=== PATIENT | male | born 1940 | race Caucasian/White ===

== ENCOUNTER 2017-01-29 11:38 | Emergency (ER) | payer MEDICARE, OTHER ==
[~2017-01-29] VITALS: Ht 172.7 cm; Wt 92.3 kg
[2017-01-29 11:39] VITALS: BP 137/82; TEMP 98.3
[2017-01-29] MEDS ORDERED: PLAVIX 75MG TAB75 MG PO (12:14)
[2017-01-29] MEDS ORDERED: ASPIRIN 81M81 MG/TA2 PO (12:14)
[2017-01-29] MEDS ORDERED: TOPROL XL 25MG25 MG PO (12:14)
[2017-01-29] MEDS ORDERED: NORVASC 10MG10 MG PO (12:15)
[2017-01-29] MEDS ORDERED: CRESTOR 10MG10 MG PO (12:15)
[2017-01-29] MEDS ORDERED: NITROSTAT0.4 MG/TAB SL (12:16)
[2017-01-29] MEDS ORDERED: VITAMIN A10k (12:17)
[2017-01-29] MEDS ORDERED: NATURE'S BLEND100 M2 PO (12:17)
[2017-01-29] MEDS ORDERED: VITAMIN B122500 MCG SL (12:18)
[2017-01-29] MEDS ORDERED: VITAMINC1000TA (12:18)
[2017-01-29] MEDS ORDERED: VITAMIN D3400 I1 PO (12:19)
[2017-01-29] MEDS ORDERED: CHROMIUM PICOLI1 TA8 (12:19)
[2017-01-29] MEDS ORDERED: VITAMIN E1000 U/CAP PO (12:19)
[2017-01-29] MEDS ORDERED: MAGNESIUM250 M1 PO (12:20)
[2017-01-29] MEDS ORDERED: CEPHALEXIN500 M1 PO (14:03)
[2017-01-29 14:26] VITALS: PULSE 62
== END 2017-01-29 14:27 | disposition home or self-care (01) ==
LOC: COL.ER 11:38
DX: S09.90XA Unspecified injury of head, initial encounter (principal); S01.111A Laceration without foreign body of right eyelid and periocular area, initial encounter; W01.198A Fall on same level from slipping, tripping and stumbling with subsequent striking against other object, initial encounter; Y92.002 Bathroom of unspecified non-institutional (private) residence as the place of occurrence of the external cause; I10 Essential (primary) hypertension; E78.5 Hyperlipidemia, unspecified; I25.10 Atherosclerotic heart disease of native coronary artery without angina pectoris; Z79.02 Long term (current) use of antithrombotics/antiplatelets

== ENCOUNTER 2017-02-03 12:07 | Emergency (ER) | payer MEDICARE, OTHER ==
[~2017-02-03 12:07] MED LIST: ASPIRIN 81M81 MG/TA2 PO; CEPHALEXIN500 M1 PO; CHROMIUM PICOLI1 TA8; CRESTOR 10MG10 MG PO; MAGNESIUM250 M1 PO; NATURE'S BLEND100 M2 PO; NITROSTAT0.4 MG/TAB SL; NORVASC 10MG10 MG PO; PLAVIX 75MG TAB75 MG PO; TOPROL XL 25MG25 MG PO; VITAMIN A10k; VITAMIN B122500 MCG SL; VITAMIN D3400 I1 PO; VITAMIN E1000 U/CAP PO; VITAMINC1000TA
[2017-02-03 12:11] VITALS: BP 163/71; PULSE 56; TEMP 98.3
== END 2017-02-03 12:15 | disposition home or self-care (01) ==
LOC: COL.ER 12:07
DX: S01.111D Laceration without foreign body of right eyelid and periocular area, subsequent encounter (principal)

== ENCOUNTER → 2017-05-12 | Outpatient (REF) ==
[2017-05-12 18:19] LABS: PSA-TOTAL 0.57 ng/mL (0-4); THYROID STIMULATING HORMONE 2.97 uIU/mL (0.465-4.680)
== END ==
LOC: ZLAB.WCH 17:30
PROVIDERS: Internal Medicine
DX: Z01.89 Encounter for other specified special examinations (principal)
CPT/HCPCS: G0103

== ENCOUNTER 2017-06-13 08:00 | Outpatient (RCR) | payer MEDICARE, OTHER ==
[2017-06-09 14:00] VITALS: BP 146/59; PULSE 64; TEMP 97.4
[2017-06-10 08:45] VITALS: BP 130/50; PULSE 59; TEMP 97.8
[2017-06-11 09:01] VITALS: BP 129/56; PULSE 60; TEMP 97.9
[2017-06-12 08:03] VITALS: BP 149/67; PULSE 66; TEMP 97.7
[~2017-06-13] VITALS: Ht 177.8 cm; Wt 97.3 kg
[2017-06-13 08:10] VITALS: BP 145/56; PULSE 58; TEMP 98.3
== END 2017-06-13 09:47 | disposition home or self-care (01) ==
LOC: EUO 08:00
DX: D50.8 Other iron deficiency anemias (principal); C49.A0 Gastrointestinal stromal tumor, unspecified site; I25.10 Atherosclerotic heart disease of native coronary artery without angina pectoris
CPT/HCPCS: J2916; J7050

== ENCOUNTER 2017-06-17 15:32 | Inpatient (IN) | payer MEDICARE, OTHER ==
[~2017-06-17] VITALS: Ht 177.8 cm; Wt 94.1 kg
[2017-06-30] VITALS (9 sets, daily range): BP systolic 141–155; BP diastolic 60–73; PULSE 55–62; TEMP 97–98.1
[2017-06-30] MEDS ORDERED: B-12 250 MCG PO (12:09)
[2017-06-30] MEDS ORDERED: ZESTRIL2.5 MG PO (12:14)
[2017-06-30] MEDS ORDERED: PRIL40 PO (12:15)
[2017-06-30] MEDS ORDERED: NORVASC 5MG5 MG/TAB PO (12:16)
[2017-06-30] MEDS ORDERED: K-TAB10 PO (12:29)
[2017-06-30] MEDS ORDERED: DEMADEX 20MG20 M1 PO (12:30)
[2017-06-30] MEDS ORDERED: ROXICODONE 55 MG/TAB PO (12:31)
[2017-06-30 12:38] LABS: HEMATOCRIT 35.7 % (42.0-52.0); HEMOGLOBIN 10.5 g/dl (13.5-18.0)
[2017-06-30 12:49] LABS: CALCIUM 9.6 mg/dL (8.4-10.2); CREATININE, serum 1.11 mg/dL (0.66-1.25); POTASSIUM 4.3 mmol/L (3.4-5.0)
[2017-07-01 02:45] VITALS: BP 151/73; PULSE 73; TEMP 98.3
[2017-07-01 05:12] VITALS: BP 147/56; PULSE 69; TEMP 97.4
[2017-07-01 07:47] LABS: HEMATOCRIT 34.7 % (42.0-52.0); HEMOGLOBIN 10.3 g/dl (13.5-18.0)
[2017-07-01 08:04] LABS: CALCIUM 9.5 mg/dL (8.4-10.2); CREATININE, serum 0.97 mg/dL (0.66-1.25); POTASSIUM 4.5 mmol/L (3.4-5.0)
[2017-07-01 10:45] VITALS: BP 142/63; PULSE 81; TEMP 98.5
[2017-07-01 14:20] VITALS: BP 133/53; PULSE 73; TEMP 97.9
[2017-07-01 17:15] VITALS: BP 138/53; PULSE 72; TEMP 98.9
[2017-07-01 20:40] VITALS: BP 151/55; PULSE 65; TEMP 98.1
[2017-07-02 01:55] VITALS: BP 140/49; PULSE 67; TEMP 98.5
[2017-07-02 05:11] VITALS: BP 152/64; PULSE 61; TEMP 98.1
[2017-07-02 06:54] LABS: HEMATOCRIT 31.6 % (42.0-52.0); HEMOGLOBIN 9.5 g/dl (13.5-18.0)
[2017-07-02 09:38] VITALS: BP 152/58; PULSE 55; TEMP 97.7
== END 2017-07-02 12:22 | disposition home or self-care (01) | DRG 392 ==
LOC: SURG 06-30 11:26 → INPTSU 06-30 11:26 → SURG 06-30 12:45
PROVIDERS: Surgery
PROC: 0DJ08ZZ Inspection of Upper Intestinal Tract, Via Natural or Artificial Opening Endoscopic (ICD-10-PCS; 2017-06-30)
PROC: 0DB64ZZ Excision of Stomach, Percutaneous Endoscopic Approach (ICD-10-PCS; principal; 2017-06-30 12:45)
PROC: 8E0W4CZ Robotic Assisted Procedure of Trunk Region, Percutaneous Endoscopic Approach (ICD-10-PCS; 2017-06-30 12:45)
DX: K31.9 Disease of stomach and duodenum, unspecified (principal); I25.10 Atherosclerotic heart disease of native coronary artery without angina pectoris; I10 Essential (primary) hypertension; K25.9 Gastric ulcer, unspecified as acute or chronic, without hemorrhage or perforation; Z95.5 Presence of coronary angioplasty implant and graft; I70.218 Atherosclerosis of native arteries of extremities with intermittent claudication, other extremity; D50.9 Iron deficiency anemia, unspecified
CPT/HCPCS: J0690; J1100; J2405; J2704; J2710; J3010; J7030; J7120

== ENCOUNTER → 2018-01-21 | Outpatient (REF) ==
[~2018-01-21] MED LIST changes: +B-12 250 MCG PO; +DEMADEX 20MG20 M1 PO; +K-TAB10 PO; +NORVASC 5MG5 MG/TAB PO; +PRIL40 PO; +ROXICODONE 55 MG/TAB PO; +ZESTRIL2.5 MG PO
[2018-01-21 17:02] LABS: THYROID STIMULATING HORMONE 3.52 uIU/mL (0.465-4.680)
== END ==
LOC: ZLAB.WCH 16:00
PROVIDERS: Internal Medicine
DX: Z01.89 Encounter for other specified special examinations (principal)

== ENCOUNTER → 2018-02-01 | Outpatient (REF) ==
[2018-02-01 18:23] LABS: IRON,SERUM 29 ug/dL (35-150)
[2018-02-01 18:33] LABS: TOTAL IRON BINDING CAPACITY 411 ug/dL (261-462)
[2018-02-01 18:59] LABS: FERRITIN 25 ng/mL (18-464)
== END ==
LOC: ZLAB.WCH 18:09
PROVIDERS: Internal Medicine
DX: Z01.89 Encounter for other specified special examinations (principal)